=== PATIENT | female | born 1980 | race Caucasian/White ===

== ENCOUNTER 2024-12-07 17:28 | Emergency (ER) | payer BC, SELFPAY ==
--- NOTE | ~2024-12-07 | XR_ITS ---
EXAMINATION: XR chest 2V DATE: 12/07/2024 18:00 INDICATION: Midsternal chest pain. TECHNIQUE: PA and lateral views of the chest were obtained. COMPARISON: None FINDINGS: The lungs are clear with no focal airspace opacities, pulmonary edema, pleural effusion or pneumothor ax. The cardiomediastinal silhouette is normal. Adjustable lap band in expected position just over th e region of the gastroesophageal junction and with normal phi angle. IMPRESSION: 1. No acute cardiopulmonary disease. Reviewed, dictated and finalized at location A.
--- NOTE | ~2024-12-07 | CT_ITS ---
Clinical Indication: Chest pain, shortness of breath, near syncope CT Scan of the Chest, Abdomen, and Pelvis with Contrast: Technique: Contiguous sections were acquired throughout the chest, abdomen, and pelvis after intraven ous administration of 100 cc of Omnipaque 350. Dose reduction technique was used on this scan by uti lizing automated exposure control and iterative reconstruction technique. The dose-length product (DL P) was 1336.47 mGy-cm. Findings: There is no evidence of any significant mediastinal, hilar or axillary lymphadenopathy. No pulmonary embolus seen. No aortic aneurysm resection. There is diffuse distention of the esophagus with gastric lap band in place.. There is no evidence of pleural or pericardial effusion. The lungs are clear. No pulmonary nodules or infiltrates are noted. The liver, spleen, pancreas, gallbladder, adrenals and right kidney are within normal limits. 9 mm no nobstructing left renal stone present. No evidence of aortic aneurysm. No lymphadenopathy. No bowel obstruction or bowel wall thickening. There is no evidence to suggest acute appendicitis. Urinary bladder is unremarkable. No pelvic mass seen. No ascites. Impression: Diffuse esophageal distention is probably related to gastric lap band. Correlate clinically. 9 mm nonobstructing left renal stone. No other significant findings. Reviewed, dictated and finalized at location . Impression: Diffuse esophageal distention is probably related to gastric lap band. Correlat e clinically. 9 mm nonobstructing left renal stone. No other significant findings.
--- NOTE | 2024-12-07 17:34 | ECG_ITS ---
Test Date: 2024-12-07 17:35:02 Measurements Intervals [place] Rate: 77 P: 40 OK: 159 QRS: 1 QRSD: 102 T: 16 QT: 356 QTc: 405 Interpretive Statements SINUS RHYTHM INCOMPLETE RIGHT BUNDLE BRANCH BLOCK [90+ ms QRS DURATION, TERMINAL R IN V1/V2, 40+ ms S IN I/aVL/V4/V5/V6] No previous ECG available for comparison Electronically Signed On 12-08-2024 16:43:22 CDT by Mary Beth Neri M.D.
[2024-12-07 17:35] VITALS: BP 152/88; PULSE 79; RESP 17; TEMP 36.8; O2SAT 100
--- NOTE | 2024-12-07 17:45 | ED.CHESTPAIN ---
HPI - Chest Pain General Chief Complaint: Chest Pain <Vilma Ragland APRN - Last Filed: 12/07/24 17:47> Stated Complaint: chest pain <Vilma Ragland APRN - Last Filed: 12/07/24 17:47> Time Seen by Provider: 12/07/24 17:35 <Vilma Ragland CHEMICAL PLANT MANAGER - Last Filed: 12/07/24 17:47> Focused HPI: Patient is a 44-year-old female who presents to the ER with chest pain and shortness of breath. She reports she has a lap band and today her surgeon ?drained it. Patient reports her symptoms started after the procedure in she is unsure whether or not the two are related. She denies any back pain, abdominal pain, urinary symptoms, lower extremity edema, or recent fevers. GENERAL: Well-appearing, well-nourished, and in no acute distress. HEAD: Normocephalic, atraumatic. CHEST: Clear to auscultation. ?No respiratory distress. HEART: Regular rate and rhythm.? NEURO: ?Alert and oriented x3. Tearful. Patient screened in triage and initial orders placed.? ?Additional care and disposition to be based upon?diagnostic testing and treatment. <Vilma Ragland CHEMICAL PLANT MANAGER - Last Filed: 12/07/24 17:47> Focused HPI: Patient is a 44-year-old female who presents to the ER with chest pain and shortness of breath. She reports she has a lap band and today her surgeon ?drained it. Patient reports her symptoms started after the procedure in she is unsure whether or not the two are related. She denies any back pain, abdominal pain, urinary symptoms, lower extremity edema, or recent fevers. GENERAL: Well-appearing, well-nourished, and in no acute distress. HEAD: Normocephalic, atraumatic. CHEST: Clear to auscultation. ?No respiratory distress. HEART: Regular rate and rhythm.? NEURO: ?Alert and oriented x3. Tearful. Patient screened in triage and initial orders placed.? ?Additional care and disposition to be based upon?diagnostic testing and treatment. <Jody Merino PA-C - Last Filed: 12/08/24 03:20> Source: patient <Jody Merino PA-C - Last Filed: 12/08/24 03:20> Mode of arrival: ambulatory <Jody Merino PA-C - Last Filed: 12/08/24 03:20> Limitations: no limitations <Jody Merino PA-C - Last Filed: 12/08/24 03:20> History of Present Illness HPI narrative: Agree with above HPI. Had lap band drained today by Dr. Winkler. States she had original procedure performed 10 years ago. Has had a lot of issues with it recently with indigestion, aspiration, vomiting after eating. States she felt better after the drainage procedure today and was able to eat lunch normally without vomiting. She went to [place] and had an episode of near-syncope where she began feeling dizzy, lightheaded, nauseous, short of breath, with midsternal chest pain, radiating through to her back. States she went to the bathroom and sat with her head between her knees and began to feel better. Then prompted here. Does complain of slight discomfort currently. <Jody Merino PA-C - Last Filed: 12/08/24 03:20> Related Data Allergies/Adverse Reactions: Allergies Allergy/AdvReac Type Severity Reaction Status Date / Time No Known Allergies Allergy Verified 12/07/24 23:21 <Vilma Ragland APRN - Last Filed: 12/07/24 17:47> Review of Systems Review of Systems: All systems reviewed & are unremarkable except as noted in HPI. <Jody Merino PA-C - Last Filed: 12/08/24 03:20> All systems reviewed & are unremarkable except as noted in HPI and below <Jody Merino PA-C - Last Filed: 12/08/24 03:20> Exam Narrative: GENERAL: Well appearing, obese w/ BMI of 33.8, non-toxic, in no acute distress. HEAD: Normocephalic, atraumatic. RESPIRATORY: Airway patent, respirations nonlabored. Clear to auscultation bilaterally, no rales, rhonchi, wheezing. CARDIOVASCULAR: Regular rate and rhythm without murmurs, rubs, or gallops. ABDOMINAL: Soft, minimal tenderness in epigastric region, nondistended. Normoactive BS. Lap band port in supraumbilical region. MUSCULOSKELETAL: Moves all extremities. No gross deformities. SKIN: Warm, dry, normal color. NEURO: A&O X3. Speech clear. Cranial nerves II-XII grossly intact. Steady gait. No ataxic movements. PSYCHIATRIC: Appropriate mood and affect. Normal interaction. <ELENA Malave Last Filed: 12/08/24 03:20> Course Vital Signs Vital signs: Vital Signs Temperature 98.3 F 12/07/24 17:35 Pulse Rate 79 12/07/24 17:35 Respiratory Rate 17 12/07/24 17:35 Blood Pressure 152/88 H 12/07/24 17:35 Pulse Oximetry 100 12/07/24 17:35 Oxygen Delivery Room Air 12/07/24 17:35 Temperature 98.9 F 12/07/24 23:17 Pulse Rate 70 12/08/24 02:54 Respiratory Rate 21 H 12/08/24 02:54 Blood Pressure 115/81 12/08/24 02:54 Pulse Oximetry 100 12/08/24 02:54 Oxygen Delivery Room Air 12/07/24 23:20 <Vilma Ragland, CHEMICAL PLANT MANAGER - Last Filed: 12/07/24 17:47> Vital Signs Temperature 98.3 F 12/07/24 17:35 Pulse Rate 79 12/07/24 17:35 Respiratory Rate 17 12/07/24 17:35 Blood Pressure 152/88 H 12/07/24 17:35 Pulse Oximetry 100 12/07/24 17:35 Oxygen Delivery Room Air 12/07/24 17:35 Temperature 98.9 F 12/07/24 23:17 Pulse Rate 70 12/08/24 02:54 Respiratory Rate 21 H 12/08/24 02:54 Blood Pressure 115/81 12/08/24 02:54 Pulse Oximetry 100 12/08/24 02:54 Oxygen Delivery Room Air 12/07/24 23:20 <ELENA Malave Last Filed: 12/08/24 03:20> MDM - Chest Pain MDM Narrative Medical decision making narrative: Patient presented to ED status post near syncopal episode with chest pain, shortness of breath, lap band drainage today. Vital signs are stable upon arrival. Patient is in no acute distress. Does report mild discomfort still upon my evaluation. EKG with incomplete right bundle, no concerning ST changes. Troponin undetectable x2. Low suspicion for ACS. HEART score =1. Basic laboratory studies are otherwise unremarkable. No leukocytosis or anemia. Stable electrolytes. Creatinine 1.13. No records to compare to. Patient given fluids. Also given dose of Protonix. Chest x-ray is clear. CTA of chest with abdomen/pelvis was obtained to rule out PE, aspiration, gastric abnormalities/lap band dislodgement. CT imaging reassuring. No aortic abnormality, pulmonary embolism, pneumonia, cardiopulmonary abnormality. Does comment on esophagitis. Gastric lap band in place. Imaging does question cystitis. Discussed lab and imaging findings, overall reassuring workup with patient. Will start patient on Protonix for home. She is not currently on any PPIs. Regarding urine abnormalities, patient denies any urinary complaints/discomfort, dysuria, hematuria, or concern for UTI. Declined urinalysis here. States she is ready to go home. Discussed likelihood of vasovagal episode related to manipulation of gastric band today. Advised patient to stay very well hydrated at home. Advised to eat slow, small meals, chew food thoroughly. Advised patient have close follow-up with surgeon and GI specialist for further evaluation. She does have an upper endoscopy scheduled for 12/22. Discussed very strict return precautions. She agrees with plan. Feels comfortable discharge home. Discharged in stable condition <Jody Merino PA-C - Last Filed: 12/08/24 03:20> Medical Records Data Attestation: I reviewed the patient's medical records. <Jody Merino PA-C - Last Filed: 12/08/24 03:20> Lab Data Attestation: I reviewed the patient's lab results. <Jody Merino PA-C - Last Filed: 12/08/24 03:20> Result diagrams: 12/07/24 17:43 12/07/24 17:43 <Vilma Ragland APRN - Last Filed: 12/07/24 17:47> Labs: Lab Results 12/07/24 12/07/24 Range/Units 17:43 23:35 WBC 8.5 (4.5-10.0) K/mm3 RBC 4.50 (4.2-5.4) M/mm3 Hgb 12.4 (12.0-15.0) g/dL Hct 38.8 (37.0-47.0) % MCV 86.2 (80-100) fl MCH 27.6 (26-34) pg MCHC 32.0 (32-36) g/dl RDW 13.3 (11.5-14.5) % Plt Count 307 (150-375) k/mm3 MPV 9.9 (7.4-10.4) fl Immature Gran % (Auto) 0.6 H (0-0.5) % Neut % (Auto) 60.9 (45.5-73.1) % Lymph % (Auto) 30.0 (18.3-44.2) % [place] % (Auto) 5.3 (2.6-8.5) % Eos % (Auto) 2.5 (0-4.4) % Baso % (Auto) 0.7 (0.2-1.2) % Lymph # (Auto) 2.56 (0.9-3.2) K/mm3 [place] # (Auto) 0.5 (0.1-0.6) K/mm3 Eos # (Auto) 0.2 (0-0.3) K/mm3 Baso # (Auto) 0.1 (0.0-0.1) K/mm3 Abs Immat Gran (auto) 0.05 H (0.00-0.031) K/mm3 Absolute Neuts (auto) 5.2 (1.3-6.7) K/mm3 Absolute Nucleated RBC 0.000 (0.0-0.012) K/mm3 Nucleated RBC % 0.0 (0.0-0.2) % PT 12.9 (11.1-14.7) Seconds INR 0.9 APTT 25.5 (22.3-36.8) Seconds Sodium 138 (137-145) mmol/L Potassium 4.2 (3.4-5.0) mmol/L Chloride 102 (98-107) mmol/L Carbon Dioxide 26 (22-30) mmol/L Anion Gap 10 (4-12) mmol/L BUN 19 H (7-17) mg/dL Creatinine 1.13 H (0.7-1.0) mg/dL Estim Creat Clear Calc 64 ml/min Estimated GFR 53 L (59 - ) Glucose 104 (65-110) mg/dL Calcium 9.6 (8.4-10.2) mg/dL Magnesium 2.1 (1.6-2.3) mg/dL Total Bilirubin 1.0 (0.2-1.3) mg/dL AST 15 (14-36) U/L ALT 8 (6-35) U/L Alkaline Phosphatase 75 (38-126) U/L Troponin I < 0.012 < 0.012 (0.000-0.034) ng/mL Total Protein 8.0 (6.3-8.2) g/dL Albumin 4.5 (3.5-5.1) g/dL Lipase 168 (23-300) U/L <Vilma Ragland, CHEMICAL PLANT MANAGER - Last Filed: 12/07/24 17:47> Lab Results 12/07/24 12/07/24 Range/Units 17:43 23:35 WBC 8.5 (4.5-10.0) K/mm3 RBC 4.50 (4.2-5.4) M/mm3 Hgb 12.4 (12.0-15.0) g/dL Hct 38.8 (37.0-47.0) % MCV 86.2 (80-100) fl MCH 27.6 (26-34) pg MCHC 32.0 (32-36) g/dl RDW 13.3 (11.5-14.5) % Plt Count 307 (150-375) k/mm3 MPV 9.9 (7.4-10.4) fl Immature Gran % (Auto) 0.6 H (0-0.5) % Neut % (Auto) 60.9 (45.5-73.1) % Lymph % (Auto) 30.0 (18.3-44.2) % [place] % (Auto) 5.3 (2.6-8.5) % Eos % (Auto) 2.5 (0-4.4) % Baso % (Auto) 0.7 (0.2-1.2) % Lymph # (Auto) 2.56 (0.9-3.2) K/mm3 [place] # (Auto) 0.5 (0.1-0.6) K/mm3 Eos # (Auto) 0.2 (0-0.3) K/mm3 Baso # (Auto) 0.1 (0.0-0.1) K/mm3 Abs Immat Gran (auto) 0.05 H (0.00-0.031) K/mm3 Absolute Neuts (auto) 5.2 (1.3-6.7) K/mm3 Absolute Nucleated RBC 0.000 (0.0-0.012) K/mm3 Nucleated RBC % 0.0 (0.0-0.2) % PT 12.9 (11.1-14.7) Seconds INR 0.9 APTT 25.5 (22.3-36.8) Seconds Sodium 138 (137-145) mmol/L Potassium 4.2 (3.4-5.0) mmol/L Chloride 102 (98-107) mmol/L Carbon Dioxide 26 (22-30) mmol/L Anion Gap 10 (4-12) mmol/L BUN 19 H (7-17) mg/dL Creatinine 1.13 H (0.7-1.0) mg/dL Estim Creat Clear Calc 64 ml/min Estimated GFR 53 L (59 - ) Glucose 104 (65-110) mg/dL Calcium 9.6 (8.4-10.2) mg/dL Magnesium 2.1 (1.6-2.3) mg/dL Total Bilirubin 1.0 (0.2-1.3) mg/dL AST 15 (14-36) U/L ALT 8 (6-35) U/L Alkaline Phosphatase 75 (38-126) U/L Troponin I < 0.012 < 0.012 (0.000-0.034) ng/mL Total Protein 8.0 (6.3-8.2) g/dL Albumin 4.5 (3.5-5.1) g/dL Lipase 168 (23-300) U/L <Jody Merino PA-C - Last Filed: 12/08/24 03:20> Imaging Data Attestation: I personally reviewed and interpreted this imaging study as follows: <Jody Merino PA-C - Last Filed: 12/08/24 03:20> Radiologist's impression: STAT RAD CTA CHEST: Normal caliber aorta without evidence of dissection. Esophagitis. Gastric lap banding. No focal consolidation, pleural effusion or pneumothorax. STAT RAD CT abd/pelvis: Normal caliber aorta without evidence of dissection. Urinary bladder wall thickening. Vesicular straining. Correlate with urinalysis. Left renal nonobstructing calculus. Questionable left renal cortical low attenuation change with associated left ureteral edema/straining. Correlate for ascending infection. No bowel obstruction or inflammation. Hysterectomy. Left ovarian 2.1 cm cyst. <Jody Merino PA-C - Last Filed: 12/08/24 03:20> ECG Data EKG #1: Attestation: I personally reviewed and interpreted this ECG as follows: <ELENA Malave Last Filed: 12/08/24 03:20> ECG completion date: 12/07/24 <ELENA Malave Last Filed: 12/08/24 03:20> ECG completion time: 17:35 <ELENA Malave Last Filed: 12/08/24 03:20> EKG Interpretation: normal rate (77), sinus rhythm, non-specific ST changes and RBBB (imcomplete) <ELENA Malave Last Filed: 12/08/24 03:20> Discharge Plan Discharge Clinical Impression: Vasovagal near syncope, Atypical chest pain, History of laparoscopic adjustable gastric banding <Vilma Ragland APRN - Last Filed: 12/07/24 17:47> Patient Disposition: Home, Self-Care <Vilma Ragland APRN - Last Filed: 12/07/24 17:47> Condition: Stable <Vilma Ragland APRN - Last Filed: 12/07/24 17:47> Instructions: Antibiotic Form, Chest Pain (ED), Syncope (ED), Esophagitis (ED) <Vilma Ragland APRN - Last Filed: 12/07/24 17:47> Additional Instructions: Your workup here was reassuring. Stay very well hydrated at home. Take Protonix daily for acid reflux/esophagitis. Continue to follow-up with your gastric surgeon and GI specialist for further evaluation. Return to the ED if you experience recurrent symptoms, passing out, severe dizziness or lightheadedness, recurrent chest pain, severe pain, unable to keep down food or drink, persistent fevers, or any other symptoms of concern. <Vilma Ragland APRN - Last Filed: 12/07/24 17:47> Patient Language: French <Vilma Ragland APRN - Last Filed: 12/07/24 17:47> Prescriptions: New pantoprazole [Protonix] 20 mg tablet,delayed release (DR/EC) 20 mg PO HS 42 Days Qty: 42 0RF <Vilma Ragland APRN - Last Filed: 12/07/24 17:47> Follow-up/Referrals: Kellie,Sanna Giraldo MD [Primary Care Provider] - <Vilma Ragland APRN - Last Filed: 12/07/24 17:47> Time of Disposition: 03:16 <Vilma Ragland APRN - Last Filed: 12/07/24 17:47> 03:16 <Jody Merino PA-C - Last Filed: 12/08/24 03:20> Quality HEART score for chest pain patients History: slightly suspicious <Jody Merino PA-C - Last Filed: 12/08/24 03:20> ECG: normal <Jody Merino PA-C - Last Filed: 12/08/24 03:20> Age: < or = to 45 years <Jody Merino PA-C - Last Filed: 12/08/24 03:20> Risk factors: 1 or 2 risk factors <Jody Merino PA-C - Last Filed: 12/08/24 03:20> Troponin: < or = to 1x normal limit <ELENA Malave Last Filed: 12/08/24 03:20> Heart score: 1 <Jody Merino PA-C - Last Filed: 12/08/24 03:20>
[2024-12-07 17:54] LABS: Basophils Absolute Auto 0.1 K/mm3 (0.0-0.1); Basophils Percent Auto 0.7 % (0.2-1.2); Eosinophils Absolute Auto 0.2 K/mm3 (0-0.3); Eosinophils Percent Auto 2.5 % (0-4.4); Hematocrit 38.8 % (37.0-47.0); Hemoglobin 12.4 g/dL (12.0-15.0); Immature Granulocyte Absolute 0.05 K/mm3 (0.00-0.031); Immature Granulocyte Percent A 0.6 % (0-0.5); Lymphocytes Absolute Auto 2.56 K/mm3 (0.9-3.2); Mean Corpuscular Hemoglobin 27.6 pg (26-34); Mean Corpuscular Volume 86.2 fl (80-100); Mean Platelet Volume 9.9 fl (7.4-10.4); Monocytes Absolute Auto 0.5 K/mm3 (0.1-0.6); Monocytes Percent Auto 5.3 % (2.6-8.5); Neutrophils Absolute Auto 5.2 K/mm3 (1.3-6.7); Neutrophils Percent Auto 60.9 % (45.5-73.1); Platelet Count Result 307 k/mm3 (150-375); Red Cell Distribution Width 13.3 % (11.5-14.5); White Blood Count 8.5 K/mm3 (4.5-10.0)
[2024-12-07 18:04] LABS: Alanine Aminotransferase 8 U/L (6-35); Albumin Level 4.5 g/dL (3.5-5.1); Alkaline Phosphatase 75 U/L (38-126); Anion Gap 10 mmol/L (4-12); Aspartate Amino Transferase 15 U/L (14-36); Blood Urea Nitrogen 19 mg/dL (7-17); Calcium 9.6 mg/dL (8.4-10.2); Carbon Dioxide 26 mmol/L (22-30); Chloride 102 mmol/L (98-107); Estimated CRCL calculation 64 ml/min; Estimated Glomerular Filt Rate 53; Glucose 104 mg/dL (65-110); INR 0.9; Lipase 168 U/L (23-300); Potassium 4.2 mmol/L (3.4-5.0); Prothrombin Time 12.9 Seconds (11.1-14.7); Sodium 138 mmol/L (137-145)
[2024-12-07 18:05] LABS: Partial Thromboplastin Time 25.5 Seconds (22.3-36.8)
[2024-12-07 18:15] LABS: Troponin I < 0.012 ng/mL (0.000-0.034)
[2024-12-07 23:17] VITALS: BP 125/90; PULSE 83; RESP 16; TEMP 37.2; O2SAT 100
[2024-12-07 23:20] VITALS: O2SAT 100
[2024-12-07 23:22] VITALS: BP 125/90; PULSE 82; RESP 14; O2SAT 100
--- NOTE | 2024-12-07 23:22 | ECG_ITS ---
Test Date: 2024-12-07 23:31:24 Measurements Intervals [place] Rate: 68 P: 36 HI: 157 QRS: 7 QRSD: 104 T: 21 QT: 378 QTc: 405 Interpretive Statements SINUS RHYTHM INCOMPLETE RIGHT BUNDLE BRANCH BLOCK Compared to ECG 12/07/2024 17:35:02 NO SIGNIFICANT CHANGES Electronically Signed On 12-08-2024 16:48:14 CDT by Mary Beth Neri M.D.
[2024-12-07 23:23] VITALS: PULSE 81
--- OUTSIDE RECORDS SUMMARY | 2024-12-08 00:04 | XMS_ITS | Encounter Summary ---
Author Organization [employer] Address 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 Gender Identity Not on file Sexual Orientation Not on file documented as of this encounter Plan of Treatment Not on file documented as of this encounter Procedures Procedure Name Priority Date/Time Associated Diagnosis Comments US OB LTD 1 OR MORE FETUSES Timed Study 05/19/2009 10:02 AM CDT documented in this encounter Results * US OB LTD 1 OR MORE FETUSES (05/19/2009 10:02 AM CDT) Anatomical Region Laterality Modality Pelvis Other Narrative 05/19/2009 10:02 AM CDT FINAL - Order Information Only Procedure Note Candido Salguero, RN - 10/11/2015 FINAL - Order Information Only Nestor Lee MD US ORDERABLES Final Result documented in this encounter Visit Diagnoses Diagnosis state, incidental documented in this encounter Care Teams Food Counter Worker Relationship Specialty Start Date End Date Facundo Newby MD PCP - General Internal Medicine 02/07/15 documented as of this encounter
--- OUTSIDE RECORDS SUMMARY | 2024-12-08 00:04 | XMS_ITS | Encounter Summary ---
Author Organization [employer] Address [address] [place] [address] Care Team Providers Care Evp Global Product Leadership Name Role Phone Facundo Newby MD Primary Care Provider [phone] Encounter Details Date Type Department Care Team (Late st Contact Info) Description 11/08/2003 Outpatient Historical [facility] Bonifacio Diaz MD NO ADDRESS ON FILE Social History Tobacco Use Types Packs/Day Years Used Date Smoking Tobacco: Never Assessed Comments Unknown Sex and Gender Information Value Date Recorded Sex Assigned at Not on file Legal Sex Female 3:29 AM INFORMATICS CONSULTANT Gender Identity Not on file Sexual Orientation Not on file documented as of this encounter Plan of Treatment Not on file documented as of this encounter Visit Diagnoses Not on filedocumented in this encounter Care Teams Evp Global Product Leadership Relationship Specialty Start Date End Date Facundo Newby MD PCP - General Internal Medicine 02/07/15 documented as of this encounter
--- OUTSIDE RECORDS SUMMARY | 2024-12-08 00:04 | XMS_ITS | Clinical Summary ---
Author Organization [facility] Address [address] [place] [id number] Phone Care Team Providers Care Auditing Manager Name Role Phone Facundo Newby MD Primary Care Provider Allergies No known active allergies Medications levothyroxine 150 mcg tablet Take 1 Tab (150 mcg) by mouth daily. 30 Tab 11 02/10/2015 Active Active Problems Problem Noted Date Diagnosed Date Unspecified hypothyroidism 02/07/2015 LAP-BAND surgery status 02/07/2015 Overview (02/07/2015): Done June 2014 Obesity (BMI 35.0-39.9 without comorbidity) 01/21 Immunizations Immunization Administration Dates Next Due (ADACEL/BOOSTRIX)(10 YR UP) TDAP VACCINE, 0.5ML, IM 02/07/2015 Family History Medical History Relation Name Comments Liver Disease Father Relation Name Status Comments Father Mother Alive Social History Tobacco Use Types Packs/Day Years Used Date Smoking Tobacco: Never Alcohol Use Standard Drinks/Week Comments No 0 (1 standard drink = 0.6 oz pur e alcohol) Comments Unknown Sex and Gender Information Value Date Recorded Sex Assigned at Not on file Legal Sex Female 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 Gender Identity Not on file Sexual Orientation Not on file Last Filed Vital Signs Vital Sign Reading Time Taken Comments Blood Pressure 122/78 02/07/2015 9:21 AM CDT Pulse 80 02/07/2015 9:21 AM CDT Temperature 36.1 C (96.9 F) 02/07/2015 9:21 AM CDT Respiratory Rate 16 02/07/2015 9:21 AM CDT Oxygen Saturation - - Inhaled Oxygen Concentration - - Weight 103.4 kg (228 lb) 02/07/2015 9:21 AM CDT Height 165.1 cm (5' 5 ) 02/07/2015 9:21 AM CDT Body Mass Index 37.94 02/07/2015 9:21 AM CDT Plan of Treatment Health Maintenance Due Date Last Done Comments HEPATITIS B VACCINES (1 of 3 - 19+ 3-dose series) 2000 CERVICAL CANCER SCREENING 2011 BREAST CANCER SCREENING 2021 INFLUENZA VACCINE (#1) 2024 DTAP/TDAP/TD VACCINES (2 - T d or Tdap) 02/07/2025 02/07/2015 HPV VACCINES Aged Out No longer eligi ble based on patient's age to complete this topic PNEUMOCOCCAL VACCINE 0-49 YEARS Aged Out No longer eligible based on patient's age to complete this topic Insurance xhome (Home) [address] [id number] Care Teams Auditing Manager Relationship Specialty Start Date End Date Facundo Newby MD PCP - General Internal Medicine 02/07/15
--- OUTSIDE RECORDS SUMMARY | 2024-12-08 00:04 | XMS_ITS | Encounter Summary ---
Author Organization [employer] Address [address] [place] [address] Care Team Providers Care Railroad Dispatcher Name Role Phone Facundo Newby MD Primary Care Provider [phone] Encounter Details Date Type Department Care Team (Late st Contact Info) Description 10/16/2002 Outpatient Historical [facility] Bonifacio Diaz MD NO ADDRESS ON FILE Social History Tobacco Use Types Packs/Day Years Used Date Smoking Tobacco: Never Assessed Comments Unknown Sex and Gender Information Value Date Recorded Sex Assigned at Not on file Legal Sex Female 3:29 AM SUPERVISOR HOME ENERGY CONSULTANT Gender Identity Not on file Sexual Orientation Not on file documented as of this encounter Plan of Treatment Not on file documented as of this encounter Visit Diagnoses Not on filedocumented in this encounter Care Teams Railroad Dispatcher Relationship Specialty Start Date End Date Facundo Newby MD PCP - General Internal Medicine 02/07/15 documented as of this encounter
--- OUTSIDE RECORDS SUMMARY | 2024-12-08 00:04 | XMS_ITS | Referral Summary ---
Author Organization [facility] Address [address] [place] [address] Care Team Providers Care Housekeeping Aid Name Role Phone Timothy Campos DO Primary Care Provider [phone] Yumiko García MD Unavailable Ze Gonzales MD Unavailable [phone] Source Comments [facility],non-owned Affiliates and Associated Physician Practices is amultiple site organization consisting of ambulatory clinics and hospital sitesin [place], [place], [place] and [place]. This disclosure is being madepursuant to the Care Everywhere program and may not contain all information available regarding this patient. Last updated 18.[facility] Allergies No known active allergies Medications * Be aware that medications may not be up to date on this document. Alwaysverify current medications with the patient. Medication Sig Dispensed Refills Start Date End Date Status levothyroxine (SYNTHROID) 125 MCG tablet 01/22/2018 Active rosuvastatin (CRESTOR) 10 MG tablet Take 10 mg by mouth once daily Active Active Problems Problem Noted Date Diagnosed Date PCOS (polycystic ovarian syndrome) Hypertriglyceridemia Menorrhagia HAROLDO (stress urinary incontinence, female) Social History Tobacco Use Types Packs/Day Years Used Date Smoking Tobacco: Never Smokeless Tobacco: Never Alcohol Use Standard Drinks/Week Comments No 0 (1 standard drink = 0.6 oz pur e alcohol) Sex and Gender Information Value Date Recorded Sex Assigned at Not on file Gender Identity Not on file Sexual Orientation Not on file Last Filed Vital Signs Vital Sign Reading Time Taken Comments Blood Pressure 118/80 12/11/2018 1:25 PM CDT Pulse 84 10/23/2018 12:00 PM RESORT HOUSEKEEPER Temperature 37.2 C (99 F) 10/23/2018 12:00 PM RESORT HOUSEKEEPER Respiratory Rate 16 10/23/2018 8:00 AM RESORT HOUSEKEEPER Oxygen Saturation 100% 10/23/2018 8:00 AM RESORT HOUSEKEEPER Inhaled Oxygen Concentration - - Weight 103.4 kg (228 lb) 12/11/2018 1:25 PM CDT Height 165.1 cm (5' 5 ) 12/11/2018 1:25 PM CDT Body Mass Index 37.94 12/11/2018 1:25 PM CDT Functional Status Functional Status Response Date of Assess ment Is person deaf or have serious hearing difficult y? No 10/23/2018 Is person blind or have serious difficulty seein g? No 10/23/2018 Does person have serious dif ficulty walking/climbing stairs? No 10/23/2018 Does person have difficulty dressing/bathing? No 10/23/2018 Does person have difficulty doing errands alone? No 10/23/2018 Cognitive Status Response Date of Assessm ent Does person have difficulty concentrating/remembering/making decisions? No 10/23/2018 Plan of Treatment Not on file Medical Devices Implanted Type Area Agile Developer Device Identifier Shelf Expiration Date Model / Serial / Lot Mesh Trnvg 12x8cm Plvsft Plvc Flr Aclr Implanted:Qty: 1 on 10/22/2018 by Ze Gonzales MD at [facility] N/A: Vagina [employer] 06/22/2021 [id number] / / [id number] Advance Directives * Full Code (Latest Code Status on File) Date Activated Date Inactivated Comments 10/22/2018 12:39 PM 10/23/2018 2:59 PM Care Teams Housekeeping Aid Relationship Specialty Start Date End Date Timothy Campos DO [address] [place] [address] PCP - General Internal Medicine 02/20/18 Yumiko García MD [address] [place] [address] [address] [facility] [place] [address] Hand Lacer Obstetrics and Gynecology 02/20/18 Ze Gonzales MD [address] [place] [address] [address] [place] [address] Consulting Physician Obstetrics and Gynecology 02/20/18
--- OUTSIDE RECORDS SUMMARY | 2024-12-08 00:04 | XMS_ITS | Encounter Summary ---
Author Organization [employer] Address [address] [place] [address] Care Team Providers Care Tester Printed Circuit Boards Name Role Phone Facundo Newby MD Primary Care Provider [phone] Encounter Details Date Type Department Care Team (Late st Contact Info) Description 10/10/2001 Outpatient Historical [facility] Bonifacio Diaz MD NO ADDRESS ON FILE Social History Tobacco Use Types Packs/Day Years Used Date Smoking Tobacco: Never Assessed Comments Unknown Sex and Gender Information Value Date Recorded Sex Assigned at Not on file Legal Sex Female 3:29 AM SATELLITE TELEVISION INSTALLER Gender Identity Not on file Sexual Orientation Not on file documented as of this encounter Plan of Treatment Not on file documented as of this encounter Visit Diagnoses Not on filedocumented in this encounter Care Teams Tester Printed Circuit Boards Relationship Specialty Start Date End Date Facundo Newby MD PCP - General Internal Medicine 02/07/15 documented as of this encounter
--- OUTSIDE RECORDS SUMMARY | 2024-12-08 00:04 | XMS_ITS | Encounter Summary ---
Author Organization [employer] Address [address] [place] [address] Care Team Providers Care Stripper Cutter Machine Name Role Phone Facundo Newby MD Primary Care Provider [phone] Encounter Details Date Type Department Care Team (Late st Contact Info) Description 06/12/2004 Outpatient Historical [facility] Bonifacio Diaz MD NO ADDRESS ON FILE Social History Tobacco Use Types Packs/Day Years Used Date Smoking Tobacco: Never Assessed Comments Unknown Sex and Gender Information Value Date Recorded Sex Assigned at Not on file Legal Sex Female 3:29 AM QUALITY REVIEW SPECIALIST Gender Identity Not on file Sexual Orientation Not on file documented as of this encounter Plan of Treatment Not on file documented as of this encounter Visit Diagnoses Not on filedocumented in this encounter Care Teams Stripper Cutter Machine Relationship Specialty Start Date End Date Facundo Newby MD PCP - General Internal Medicine 02/07/15 documented as of this encounter
--- OUTSIDE RECORDS SUMMARY | 2024-12-08 00:04 | XMS_ITS | Encounter Summary ---
Author Organization [employer] Address [address] [place] [address] Care Team Providers Care Acrylic Fabricator Name Role Phone Facundo Newby MD Primary Care Provider [phone] Encounter Details Date Type Department Care Team (Late st Contact Info) Description 08/13/2000 Outpatient Historical [facility] Bonifacio Diaz MD NO ADDRESS ON FILE Social History Tobacco Use Types Packs/Day Years Used Date Smoking Tobacco: Never Assessed Comments Unknown Sex and Gender Information Value Date Recorded Sex Assigned at Not on file Legal Sex Female 3:29 AM RETAIL ASSOCIATE MANAGER BILINGUAL Gender Identity Not on file Sexual Orientation Not on file documented as of this encounter Plan of Treatment Not on file documented as of this encounter Visit Diagnoses Not on filedocumented in this encounter Care Teams Acrylic Fabricator Relationship Specialty Start Date End Date Facundo Newby MD PCP - General Internal Medicine 02/07/15 documented as of this encounter
--- OUTSIDE RECORDS SUMMARY | 2024-12-08 00:04 | XMS_ITS | Clinical Summary ---
Author Organization [facility] Address [address] [place] [address] Care Team Providers Care Instructional Designer Name Role Phone Timothy Campos DO Primary Care Provider [phone] Yumiko García MD Unavailable [phone] Ze Gonzales MD Unavailable [phone] Source Comments [facility],non-owned Affiliates and Associated Physician Practices is amultiple site organization consisting of ambulatory clinics and hospital sitesin [place], [place]. This disclosure is being madepursuant to the Care Everywhere program and may not contain all information available regarding this patient. Last updated 18.[facility] Allergies No known active allergies Medications * [...] PM CDT Pulse 84 10/23/2018 12:00 PM SMALL PACKAGE AND BUNDLE SORTER CLERK Temperature 37.2 C (99 F) 10/23/2018 12:00 PM SMALL PACKAGE AND BUNDLE SORTER CLERK Respiratory Rate 16 10/23/2018 8:00 AM SMALL PACKAGE AND BUNDLE SORTER CLERK Oxygen Saturation 100% 10/23/2018 8:00 AM SMALL PACKAGE AND BUNDLE SORTER CLERK Inhaled Oxygen Concentration - - Weight 103.4 kg (228 lb) 12/11/2018 1:25 PM CDT Height 165.1 cm (5' 5 ) 12/11/2018 1:25 PM CDT Body Mass Index 37.94 12/11/2018 1:25 PM CDT Plan of Treatment Health Maintenance Due Date Last Done Comments MAMMOGRAM 1981 HIV SCREENING 1996 HEPATITIS C SCREENING 08/04/1999 DTAP/TDAP/TD VACCINES (1 - Tdap) 2000 HEPATITIS B VACCINE (1 of 3 - 19+ 3-dose series) 2000 COVID-19 VACCINE ( - 2023-2 5 season) 2024 DEPRESSION SCREENING 09/23/2024 ZOSTER VACCINE (1 of 2) 2031 INFLUENZA VACCINE Completed 07/08/2024 HIB VACCINE Aged Out No longer eligi ble based on patient's age to complete this topic HPV VACCINE Aged Out No longer eligi ble based on patient's age to complete this topic MENINGOCOCCAL (Group B) VACC INE SHARED DECISION-MAKING Aged Out No longer eligibl e based on patient's age to complete this topic MENINGOCOCCAL GROUPS A/C/Y/W VACCINE Aged Out No longer eligible b ased on patient's age to complete this topic PNEUMOCOCCAL VACCINE Aged Out No long er eligible based on patient's age to complete this topic Medical Devices Implanted Type Area Night Shift Manager Device Identifier Shelf Expiration Date Model / Serial / Lot Mesh Trnvg 12x8cm Plvsft Plvc Flr Aclr Implanted:Qty: 1 on 10/22/2018 by Ze Gonzales MD at [facility] N/A: Vagina [facility] 06/22/2021 [id number] / / [id number] Advance Directives * Full Code (Latest Code Status on File) Date Activated Date Inactivated Comments 10/22/2018 12:39 PM 10/23/2018 2:59 PM Care Teams Instructional Designer Relationship Specialty Start Date End Date Timothy Campos DO [facility] [facility] [address] [place] [address] PCP - General Internal Medicine 02/20/18 Yumiko García MD [address] [place] [address] [address] [place] [address] Teaching Young Obstetrics and Gynecology 02/20/18 Ze Gonzales MD [address] [place] [address] [address] [place] [address] Consulting Physician Obstetrics and Gynecology 02/20/18
--- OUTSIDE RECORDS SUMMARY | 2024-12-08 00:04 | XMS_ITS | Patient Health Summary ---
Author Organization [facility] Address [address] [place] [address] Care Team Providers Care Prospect Manager Name Role Phone Timothy Campos DO Primary Care Provider [phone] Yumiko García MD Unavailable [phone] Ze Gonzales MD Unavailable Note from [facility],non-owned Affiliates and Associated Physician Practices is amultiple site organization consisting of ambulatory clinics and hospital sitesin [place], [place], [place] and [place]. This disclosure is being madepursuant to the Care Everywhere program and may not contain all informatio navailable regarding this patient. Last updated 18.[facility] Allergies No known active allergies Medications * Be aware that medications may not be up to date on this document. Alwaysverify current medications with the patient. * levothyroxine (SYNTHROID) 125 MCG tablet(Started 01/22/2018) * rosuvastatin (CRESTOR) 10 MG tablet Take 10 mg by mouth once daily Active Problems Problem Noted Date Diagnosed Date [...] PM CDT Pulse 84 10/23/2018 12:00 PM BOAT DESIGNER Temperature 37.2 C (99 F) 10/23/2018 12:00 PM BOAT DESIGNER Respiratory Rate 16 10/23/2018 8:00 AM BOAT DESIGNER Oxygen Saturation 100% 10/23/2018 8:00 AM BOAT DESIGNER Inhaled Oxygen Concentration - - Weight 103.4 kg (228 lb) 12/11/2018 1:25 PM CDT Height 165.1 cm (5' 5 ) 12/11/2018 1:25 PM CDT Body Mass Index 37.94 12/11/2018 1:25 PM CDT Medical Devices Implanted Type Area Injection Molder Device Identifier Shelf Expiration Date Model / Serial / Lot Mesh Trnvg 12x8cm Plvsft Plvc Flr Aclr Implanted:Qty: 1 on 10/22/2018 by Ze Gonzales MD at [facility] N/A: [employer] 06/22/2021 [id number] / / [id number] Procedures * HCG URINE QUALITATIVE - POINT OF CARE(Performed 12/11/2018) * CULTURE URINE(Performed 12/11/2018) Performed for Postop check * URINALYSIS AUTO - POINT OF CARE(Performed 12/11/2018) Performed for Postop check * CARDIAC RHYTHM STRIP ORDER(Performed 10/24/2018) * HGB HCT PANEL(Performed 10/23/2018) Performed for HAROLDO (stress urinary incontinence, female) * PATHOLOGY TISSUE EXAM (STL)(Performed 10/22/2018) Performed for Diagnosis unknown * SLING OPERATION TRANSOBTURATOR(Performed 10/22/2018) Performed for N81.2, N95.0 * LAPAROSCOPIC ASSIST VAGINAL HYSTERECTOMY (LAVH)(Performed 10/22/2018) Performed for N81.2, N95.0 * TYPE + SCREEN PANEL(Performed 10/22/2018) * CBC W AUTO DIFFERENTIAL(Performed 10/22/2018) * BLOOD TYPE VERIFICATION(Performed 10/22/2018) * HCG URINE QUALITATIVE - POCT (IP) INTERFACED(Performed 10/22/2018) * CULTURE URINE(Performed 03/27/2018) Performed for HAROLDO (stress urinary incontinence, female) * CULTURE URINE(Performed 02/20/2018) Performed for HAROLDO (stress urinary incontinence, female) * URINALYSIS AUTO - POINT OF CARE(Performed 02/20/2018) Performed for HAROLDO (stress urinary incontinence, female) Results * HCG URINE QUALITATIVE - POINT OF CARE (12/11/2018 4:22 PM CDT) HCG Qual Urine Negative Negative [facility] POCT TESTING QC Verified Yes Yes [facility] POC T TESTING Urine URINE / Unknown 12/11/2018 4 :22 PM CDT Ze Gonzales MD LAB - POINT OF CARE ORDERABLES [facility] POCT TESTING [address] * CULTURE URINE (12/11/2018 2:34 PM CDT) Only the most recent of3 resultswithin the time period is included. Urine Culture Routine Final report [facility] INSURANCE BILL Result 1 [facility] INSURANCE BILL Comment: Culture shows less than 10,000 colony forming units of bacteria per milliliter of urine. This colony count is not generally considered to be clinically significant. Urine URINE SPECIMEN OBTAINED BY CLEAN CATCH PROCEDURE / Unknown 12/11/2018 2:34 PM CDT 12/12/2018 Narrative Resulting Agency Comment [facility] [address] [id number] Ze Gonzales MD LAB - MICROBIOLOGY O RDERABLES Performing Organization Address City/[facility]/ZIP Co de Phone Number [facility] INSURANCE BILL [address] [place] [address] * URINALYSIS AUTO - POINT OF CARE (12/11/2018) Only the most recent of2 resultswithin the time period is included. Clarity UA POCT clear Color UA POCT yellow Leukocyte UA neg Negative Nitrite UA POCT neg Negative Urobilinogen UA 0.1 0.1 - 1.0 Protein UA POCT trace Negative pH UA 5.5 5.0 - 8.0 pH units Blood UA trace Negative Specific [place] UA POCT 1.030 1.002 - 1.030 Ketone UA neg Negative Bilirubin UA POCT neg Negative Glucose UA neg Negative Urine URINE / Unknown 12/11/2018 Ze Gonzales MD LAB - POINT OF CARE ORDERABLES * CARDIAC RHYTHM STRIP ORDER (10/24/2018 4:41 PM BOAT DESIGNER) Narrative 10/24/2018 4:41 PM BOAT DESIGNER Ordered by an unspecified provider. Scanned Document CARDIAC SERVICES ORD ERABLES * (ABNORMAL) HGB HCT PANEL (10/23/2018 5:34 AM BOAT DESIGNER) Hemoglobin 9.5(L) 12.0 - 15.6 gm/dL 10/23/2018 6:04 AM BOAT DESIGNER [facility] Hematocrit 30.3(L) 35.9 - 45.5 % 10/23/2018 6:04 AM [facility] Blood BLOOD SPECIMEN / Unknown Lab Venipuncture / Unknown 10/23/2018 5:34 AM BOAT DESIGNER 10/23/2018 6:01 AM BOAT DESIGNER Ze Gonzales MD LAB - HEMATOLOGY ORD ERABLES [facility] [address] [place] [address] * GROSS + MICRO EXAM (STL) (10/22/2018 9:39 AM BOAT DESIGNER) Case Report Surgical Pathology Report Case: [id number] Authorizing Provider: Yumiko García MD Collected: 10/22/2018 09:39 AM Ordering Location: [facility] INTRAOP Received: 10/22/2018 10:42 AM Pathologist: Julee Cummins MD Specimen: Uterus w Tubes, Uterus with Cervix and Bilateral Tubes 10/24/2018 8:39 AM BOAT DESIGNER [facility] Final Diagnosis Uterus, cervix, hysterectomy: - Mild chronic inflammation Uterus, endometrium, hysterectomy: - Secretory endometrium Uterus, myometrium, hysterectomy: - Leiomyomas, largest 0.9 cm - Adenomyosis Fallopian tubes, bilateral, salpingectomy: - No histopathologic abnormality KL/me 10/24/2018 8:39 AM BOAT DESIGNER [facility] Gross Description Received in a container of formalin labeled RizzoSharonda R and uterus with cervix and bilateral tubes is a uterus with attached cervix and detached fallopian tubes. The uterus weighs 178 grams and 12.8 cm from the uterine fundus to cervix, 8.3 cm from cornu to cornu and 6 cm from anterior to posterior. The lower serosa is focally roughened. The ectocervix measures 2.1 cm in diameter and has a 0.2 cm round os. The ectocervical mucosa appears grossly roughened from approximately 5 to 9 o'clock. The appreciated ectocervical mucosa is pink-browne and glistening. The uterus displays a triangular endometrial cavity measuring 4.2 x 5 cm, an endocervical canal measuring 3.6 x 0.4 cm. Sectioning displays a red-brown trabecular myometrium with an average thickness of 3 cm, a red-browne endometrium with an average thickness of 0.2 cm. There are four yellow-white whorled nodules ranging from approximately 0.3 up to 0.9 cm. No hemorrhage or necrosis is grossly appreciated. The first described possible fallopian tube measures 0.8 cm in length x 0.2 cm in diameter. The serosa is purple-brown and roughened, and sectioning displays a purple-brown cut surface. The second described fallopian tube measures 1.1 cm in length x 0.3 cm in diameter. The serosa is purple-brown and sectioning displays a purple-brown cut surface. Professor Of Music sections are submitted as follows: A1 - 12 o'clock cervix A2 - 6 o'clock cervix A3 - anterior endomyometrium A4 - posterior endomyometrium A5 - additional endometrium A6-A7 - whorled nodules A8 - roughened serosa A9 - first described fallopian tube, submitted entirely A10 - second described fallopian tube, submitted entirely RAMON/garfield 10/24/2018 8:39 AM [facility] Microscopic Description Histologic sections of the cervix show mild chronic inflammation. There is no evidence of dysplasia or malignancy. The endometrium is secretory without evidence of hyperplasia or malignancy. The myometrium shows several benign leiomyomas and focal adenomyosis. There is no evidence of malignancy. Histologic sections of the bilateral fallopian tubes show no specific histopathologic abnormality. Rosemary 10/24/2018 8:39 AM [facility] Disclaimer All histochemical and/or immunohistochemical results are interpreted with controls that demonstrate appropriate staining reactions before reporting results. Note on use of immunocytochemistry reagents: This test was developed and its performance characteristic determined by [facility], Department of Laboratory Medicine. It has not been cleared or approved by the U.S. Food and Drug Administration (FDA). The FDA has determined that such clearance or approval is not necessary. The test is used for clinical purpose. It should not be regarded as investigational or for research. This laboratory is certified to perform high complexity testing. 10/24/2018 8:39 AM [facility] Embedded Images 10/24/2018 8:39 AM [facility] Pathology/Cytolo gy UTERUS AND FALLOPIAN TUBES, CS / Unknown 10/22/2018 9:39 AM BOAT DESIGNER 10/22/2018 10:42 AM BOAT DESIGNER Yumiko García MD LAB - PATHOLOGY/CYT OLOGY ORDERABLES Performing Organization Address City/[facility]/ZIP Co de Phone Number [facility] [address] [place] [address] * TYPE + SCREEN PANEL (10/22/2018 6:53 AM BOAT DESIGNER) ABO O 10/22/2018 8:03 AM [facility] Rh Type Positive 10/22/2018 8:03 AM [facility] Comment:History checked. Col lect retype. Antibody Screen Negative 10/22/2018 8:03 AM [facility] BLOOD [facility] Blood Bank BLOOD SPECIMEN / Unknown Venipuncture / Unknown 10/22/2018 6:53 AM BOAT DESIGNER 10/22/2018 7:02 AM BOAT DESIGNER Ze Gonzales MD LAB - BLOOD BANK ORD ERABLES Performing Organization Address City/[facility]/ZIP Co de Phone Number [facility] [address] [place] [address], [facility] [phone] * (ABNORMAL) CBC W AUTO DIFFERENTIAL (10/22/2018 6:53 AM BOAT DESIGNER) WBC 6.0 4.4 - 10.7 x10E9/L 10/22/2018 7:08 AM [facility] WBC Corrected x10E9/L 10/22/2018 7:08 AM [facility] RBC 4.32 3.80 - 5.20 x10E12/L 10/22/2018 7:08 AM [facility] Hemoglobin 11.2(L) 12.0 - 15.6 gm/dL 10/22/2018 7:08 AM [facility] Hematocrit 35.6(L) 35.9 - 45.5 % 10/22/2018 7:08 AM [facility] MCV 82.4 80.7 - 98.3 fl 10/22/2018 7:08 AM [facility] MCH 25.9(L) 26.7 - 34.0 pg 10/22/2018 7:08 AM [facility] MCHC 31.5 30.8 - 35.9 gm/dL 10/22/2018 7:08 AM [facility] Platelet Count 226 153 - 416 x10E9/L 10/22/2018 7:08 AM [facility] RDW-CV 14.7 12.1 - 14.9 % 10/22/2018 7:08 AM [facility] MPV 10.5 9.4 - 12.9 fl 10/22/2018 7:08 AM [facility] Neutrophils % 52.4 44.0 - 73.0 % 10/22/2018 7:08 AM [facility] Lymphocytes % 37.0 20.0 - 43.0 % 10/22/2018 7:08 AM [facility] Monocytes % 6.2 5.0 - 13.0 % 10/22/2018 7:08 AM [facility] Eosinophils % 3.2 0.0 - 6.0 % 10/22/2018 7:08 AM [facility] Basophils % 1.0 0.0 - 2.0 % 10/22/2018 7:08 AM [facility] Immature Granulocytes 0.2 0 - 1 % 10/22/2018 7:08 AM [facility] Neutrophil Absolute 3.15 2.01 - 7.14 x10E9/L 10/22/2018 7:08 AM [facility] Lymphocytes Absolute 2.22 1.07 - 3.94 x10E9/L 10/22/2018 7:08 AM [facility] Monocytes Absolute 0.37 0.26 - 1.07 x10E9/L 10/22/2018 7:08 AM [facility] Eosinophils Absolute 0.19 0 - 0.47 x10E9/L 10/22/2018 7:08 AM BOAT DESIGNER [facility] Basophils Absolute 0.06 0 - 0.08 x10E9/L 10/22/2018 7:08 AM [facility] Immature Granulocytes Absolute 0.01 0.00 - 0.06 x10E9/L 10/22/2018 7:08 AM [facility] nRBC Auto 0 /100 WBC 10/22/2018 7:08 AM [facility] Blood BLOOD SPECIMEN / Unknown Venipuncture / Unknown 10/22/2018 6:53 AM BOAT DESIGNER 10/22/2018 7:02 AM BOAT DESIGNER Ze Gonzales MD LAB - HEMATOLOGY ORD ERABLES [facility] [address] [address] * BLOOD TYPE VERIFICATION (10/22/2018 6:50 AM BOAT DESIGNER) ABO O 10/22/2018 8:05 AM BOAT DESIGNER [facility] Rh Type Positive 10/22/2018 8:05 AM BOAT DESIGNER [facility] Blood Bank BLOOD SPECIMEN / Unknown Lab Venipuncture / Unknown 10/22/2018 6:50 AM BOAT DESIGNER 10/22/2018 7:23 AM BOAT DESIGNER Ze Gonzales MD LAB - BLOOD BANK ORD ERABLES Performing Organization Address City/[facility]/ZIP Co de Phone Number [facility] [address] [place] [address] [phone] * HCG URINE QUALITATIVE - POCT (IP) INTERFACED (10/22/2018 6:44 AM BOAT DESIGNER) HCG Qual Urine Negative Negative 10/22/2018 6:46 AM BOAT DESIGNER [facility] Urine URINE / Unknown 10/22/2018 6 :44 AM BOAT DESIGNER 10/22/2018 6:46 AM BOAT DESIGNER Yumiko García MD LAB - POINT OF CARE ORDERABLES [facility] [address] [address] Care Teams Prospect Manager Relationship Specialty Start Date End Date Timothy Campos DO [address] [place] [address] PCP - General Internal Medicine 02/20/18 Yumiko García MD [address] [place] [address] [address] [place] [address] Radio Repairman Obstetrics and Gynecology 02/20/18 Ze Gonzales MD [address] [address] [place] [address] Consulting Physician Obstetrics and Gynecology 02/20/18
--- OUTSIDE RECORDS SUMMARY | 2024-12-08 00:04 | XMS_ITS | Encounter Summary ---
Author Organization [facility] Address [address] [place] [address] Care Team Providers Care Claims Technician Name Role Phone Facundo Newby MD Primary Care Provider [phone] Encounter Details Date Type Department Care Team (Late st Contact Info) Description 08/29/1999 Outpatient Historical [facility] Bonifacio Diaz MD NO ADDRESS ON FILE Social History Tobacco Use Types Packs/Day Years Used Date Smoking Tobacco: Never Assessed Comments Unknown Sex and Gender Information Value Date Recorded Sex Assigned at Not on file Legal Sex Female 3:29 AM ASSOCIATE PROFESSOR OF KINESIOLOGY Gender Identity Not on file Sexual Orientation Not on file documented as of this encounter Plan of Treatment Not on file documented as of this encounter Visit Diagnoses Not on filedocumented in this encounter Care Teams Claims Technician Relationship Specialty Start Date End Date Facundo Newby MD PCP - General Internal Medicine 02/07/15 documented as of this encounter
[2024-12-08] MEDS: SODIUM CHLORIDE 0.9% IV 1,000 ML 999 ML IV CONT (00:05)
[2024-12-08 00:14] LABS: Troponin I < 0.012 ng/mL (0.000-0.034)
[2024-12-08 00:17] LABS: Magnesium 2.1 mg/dL (1.6-2.3)
--- NOTE | 2024-12-08 00:27 | PC.NURSE ---
Pt reports she has had a hysterectomy. CT notified.
[2024-12-08] MEDS: PANTOPRAZOLE SODIUM IV 40 MG VIAL IV PUSH (00:31)
[2024-12-08 02:54] VITALS: BP 115/81; PULSE 70; RESP 21; O2SAT 100
== END 2024-12-08 03:45 | disposition home or self-care (01) ==
PROVIDERS: Emergency Medicine; Emergency Provider Physician Assistant; PCP Internal Medicine Gastroenterology
DX: R55 Syncope and collapse (principal); R07.89 Other chest pain; Z98.84 Bariatric surgery status; I45.10 Unspecified right bundle-branch block
CPT/HCPCS: 36415; 71046; 71275; 74177; 80053; 83690; 83735; 84484; 85025; 85610; 85730; 93005; 96361; 96374; 99284; J2470; J7030; Q9967